=== PATIENT | male | born 1955 | race Caucasian/White ===

== ENCOUNTER 2018-02-16 11:20 | Day surgery (SDC) | payer BC ==
--- NOTE | 2018-02-15 12:04 | RADIOLOGY REPORT (SQ) ---
EXAM DESCRIPTION: CHEST PA/LATERAL COMPLETED DATE/TIME: 02/15/2018 11:35 am REASON FOR STUDY: PRE-OP COMPARISON: None. EXAM PARAMETERS: NUMBER OF VIEWS: two views TECHNIQUE: Digital Frontal and Lateral radiographic views of the chest acquired. RADIATION DOSE: NA LIMITATIONS: none FINDINGS: LUNGS AND PLEURA: No opacities, masses or pneumothorax. No pleural effusion. MEDIASTINUM AND HILAR STRUCTURES: No masses or contour abnormalities. HEART AND VASCULAR STRUCTURES: Heart normal size. No evidence for failure. BONES: No acute findings. HARDWARE: None in the chest. OTHER: No other significant finding. IMPRESSION: NO SIGNIFICANT RADIOGRAPHIC FINDING IN THE CHEST. TECHNICAL DOCUMENTATION: JOB ID: [id number] [employer]- All Rights Reserved Reading location - IP/workstation name: [email or web address]
[2018-02-15 12:07] LABS: HEMATOCRIT 43.4 % (37.9-51.0); HEMOGLOBIN 14.7 g/dL (13.5-17.0); MEAN CORPUSCULAR HEMOGLOBIN 31.3 pg (27.0-33.4); MEAN CORPUSCULAR VOLUME 92 fl (80-97); PLATELET COUNT 209 10^3/uL (150-450); WHITE BLOOD COUNT 7.2 10^3/uL (4.0-10.5)
[2018-02-15 12:11] LABS: APPEARANCE,URINE CLEAR; BILIRUBIN,URINE NEGATIVE (NEGATIVE); COLOR,URINE YELLOW; GLUCOSE, URINE NEGATIVE (NEGATIVE); KETONES,URINE NEGATIVE (NEGATIVE); LEUKOCYTE ESTERASE,URINE NEGATIVE (NEGATIVE); NITRITE,URINE NEGATIVE (NEGATIVE); PROTEIN,URINE NEGATIVE (NEGATIVE); URINE SPECIFIC GRAVITY 1.018; UROBILINOGEN,URINE NEGATIVE mg/dL (<2.0)
[2018-02-15 12:36] LABS: ANION GAP 11 (5-19); BLOOD UREA NITROGEN 22 mg/dL (7-20); CALCIUM 9.7 mg/dL (8.4-10.2); CARBON DIOXIDE 32 mmol/L (22-30); CHLORIDE 102 mmol/L (98-107); GLUCOSE 78 mg/dL (75-110); POTASSIUM 4.4 mmol/L (3.6-5.0); SODIUM 144.9 mmol/L (137-145)
--- NOTE | 2018-02-15 12:44 | EKG REPORT ---
SEVERITY:- NORMAL ECG - SINUS RHYTHM : Confirmed by: Raghavendra Negro MD 15-Feb-2018 12:43:17
[~2018-02-16 11:20] MED LIST: BUPIVACAINE HCL 0.5 % INJ/PF 30 ML SDV ONE; CEFAZOLIN 2 GM/D5W RTU 2 GM/50 ML RTUPB IV PRN; LACTATED RINGERS 1000 ML IV PRN; LIDOCAINE 0.5% INJ-PF (5 MG/ML) 50 ML SDV SUBCUT PRN; LIDOCAINE 1% INJ-PF (10 MG/ML) 30 ML SDV ONE
[2018-02-16] MEDS ORDERED: FENTANYL CITRATE INJ/PF 100 MCG/2 ML AMPUL ONE (12:46)
[2018-02-16] MEDS ORDERED: LIDOCAINE 2% INJ-PF (20 MG/ML) 10 ML AMPUL ONE (12:46)
[2018-02-16] MEDS ORDERED: MIDAZOLAM 2 MG/2 ML INJ ONE (12:47)
[2018-02-16] MEDS ORDERED: PROPOFOL INJ 200 MG/20 ML VIAL IV ONE (12:47)
[2018-02-16] MEDS ORDERED: DEXAMETHASONE SOD PHOSPHATE INJ 4 MG/1 ML VIAL ONE (12:47)
[2018-02-16] MEDS ORDERED: ACETAMINOPHEN 1,000 MG/100 ML RTUPB IV ONE (12:47)
[2018-02-16] MEDS ORDERED: FENTANYL CITRATE INJ/PF 100 MCG/2 ML AMPUL IV PRN ×4 (13:40→15:53)
[2018-02-16] MEDS ORDERED: ONDANSETRON HCL INJ/PF 4 MG/2 ML SDV IV PRN ×2 (13:40→15:53)
[2018-02-16] MEDS ORDERED: MEPERIDINE HCL/PF INJ 25 MG/1 ML DISP.SYRIN IV PRN (13:40)
[2018-02-16] MEDS ORDERED: PROMETHAZINE HCL INJ 25 MG/1 ML VIAL IV PRN ×2 (13:40)
[2018-02-16] MEDS ORDERED: DIPHENHYDRAMINE HCL 50 MG/ML VIAL IV PRN (13:40)
[2018-02-16] MEDS ORDERED: MORPHINE SULFATE 10 MG/ML INJ IV PRN (13:40)
[2018-02-16] MEDS ORDERED: OXYCODONE-ACETAMINOPHEN 5-325 MG TABLET PO PRN (15:53)
--- NOTE | 2018-02-16 15:53 | Operative Report ---
Operative Report DATE OF SURGERY: 02/16/18 PREOPERATIVE DIAGNOSIS: Left intra-articular distal radius fracture POSTOPERATIVE DIAGNOSIS: Same OPERATION: ORIF left intra-articular distal radius fracture via dorsal approach SURGEON: KINZA ROBERTS ANESTHESIA: GA COMPLICATIONS: None ESTIMATED BLOOD LOSS: Minimal PROCEDURE: Indication for above procedure: 62-year-old male who sustained a fall while playing dodge ball with some children during vacation [employer]. Patient was seen at the emergency room where x-rays demonstrate comminuted distal radius fracture. CT scan was done confirming diagnosis. Given given the amount of comminution intra-articular nature of the fracture we discussed treatment options including operative versus nonoperative intervention after discussing risks and benefits joint decision was made to proceed with operative treatment. Procedure In Detail: Patient was seen and evaluated in the preoperative holding area. The LEFT upper extremity was initialized and marked. Patient received 2g of Ancef IV for bacterial prophylaxis. Patient was taken back to the operative room where transferred to the operative table and placed under general anesthesia. Once they were adequately anesthetized a nonsterile tourniquet was placed on the upper extremity. A surgical team debriefing was performed ensuring all instrumentation was available, the surgical procedure was discussed with possible concerns reviewed. The upper extremity was prepped with chlorhexidine and alcohol and draped in a sterile fashion. A timeout was done identifying correct patient, procedure and extremity everyone in attendance agree with this and verbalized no concerns. The extremity was exsanguinated the tourniquet was inflated to 250 mmHg. Longitudinal skin incision was made centered over Sharla's tubercle. Blunt dissection was performed. Any peripheral veins were coagulated bipolar cautery. Branches of the superficial nerves were identified and retracted. The third dorsal compartment was then opened and hematoma irrigated. I then released the EPL tendon and transposed it in a radial direction. With sharp dissection the fourth dorsal compartment and third dorsal compartment were elevated exposing the fracture site. The posterior interosseous nerve identified and neurectomy was performed excising 1 cm. A capsulotomy was made to directly visualize the articular surface. The articular surface was then copiously irrigated with normal saline. Any loose bodies and cartilage fragments were excised. A 8 mm defect along the dorsal aspect was identified however the remaining portion of the articular surface was intact. Under direct visualization the fragments were then fixated with K wires to restore articular alignment. Once adequate articular alignment was achieved C-arm fluoroscopy was obtained confirming acceptable alignment. A standard Acumed dorsal plate was then placed into position. C-arm fluoroscopy was obtained confirming appropriate placement. A bicortical screw was placed through the oblong hole. I then proceeded with fixation. Under direct visualization of the articular surface the radial column was fixated with 2 locking screws which adequately supported the articular surface. I then completed fixation along the ulnar column with 3 additional locking screws once again providing adequate fixation. C-arm fluoroscopy was obtained demonstrating voodoo of radial height, inclination and volar tilt. Under direct visualization of the articular surface was no evidence of intra- articular screw penetration. There is adequate fixation of the articular fragments however did not feel there was adequate fixation within the radial styloid. At the bare portion between the first and second dorsal compartments a K wire was placed perpendicular to the radial styloid fragment. With C arm fluoroscopy confirmed adequate placement of the K wire and placed a 30 mm mini Acutrak screw was provided fixation of the radial styloid fragment. All remaining K wires were then removed. I placed the wrist through range of motion there is no evidence of fracture instability under direct visualization. C-arm fluoroscopy was obtained and under live fluoroscopy there is no evidence of instability with adequate voodoo of the articular alignment. The wound was then copiously irrigated with normal saline. The EPL was transposed in a radial direction. The retinaculum was then reapproximated with 3-0 Monocryl suture which provided a smooth gliding surface for the EPL. There was adequate coverage of the plate protecting the fourth dorsal compartment as well. The tourniquet was then deflated. Any peripheral bleeding was controlled with bipolar cautery into the wound was dry. Subcutaneous tissues were closed with interrupted 4-0 Monocryl suture. Skin was closed with a running horizontal mattress 4-0 nylon. 30 cc of 0.5% Marcaine without epinephrine was injected for postoperative pain control. Patient was placed in a volar resting splint in the neutral position. Sponge counts, instrument counts, needle counts counts were correct. Patient was then awoken from anesthesia. Transferred from the operating room table to the operating room stretcher. There was no intraoperative complications patient tolerated procedure well stable to PACU. Postoperative plan: Patient will follow-up in the office in 2 weeks radiographs will be obtained. Patient will be transitioned to a Exos brace sutures removed. He will begin supination and pronation but avoid wrist flexion/extension until follow-up with me in 4 weeks postop. Will continue digit range of motion attempting to make a full composite fist.
--- NOTE | 2018-02-16 15:54 | Discharge Summary ---
Discharge Summary (SDC) - Discharge Final Diagnosis: Left intra-articular distal radius fracture Date of Surgery: 02/16/18 Discharge Date: 02/16/18 Condition: Good Treatment or Instructions: Schedule Follow Up w/ Dr. Fletcher Dent @ [facility] to be seen in 10-14 days or as scheduled [place]: [place]: [place]: Ice and elevate Keep splint clean/dry/intact. If your fingers become numb please unwrap the Rosalio wrap but leave the splint in place, if the sensation does not return within 30 minutes please return to the emergency department. May begin finger range of motion attempting to make full fist. Please use ibuprofen (Motrin or Advil) 600-800 mg every 8 hours as needed for pain or fever DO NOT TAKE w/ TORADOL may use once TORADOL complete. You may also use acetaminophen (Tylenol) 1000 mg every 4-6 hours as needed for pain or fever. Please be aware that many medications contain acetaminophen, do not exceed a total of 1000 mg of acetaminophen every 6 hours. If ibuprofen and acetaminophen are not sufficient for your pain you may take the Percocet/[place]. Please be aware that the Percocet/[place] does contain Tylenol. Stool softener of choice when on pain medication. Prescriptions: Oxycodone HCl/Acetaminophen [Percocet 5-325 mg Tablet] 1 - 2 tab PO ASDIR PRN # 35 tablet PRN Reason: Discharge Diet: As Tolerated Respiratory Treatments at Home: Deep Breathing/Coughing Discharge Activity: No Lifting Over 10 Pounds, No Lifting/Push/Pulling Report the Following to Your Physician Immediately: Fever over 101 Degrees, Unusual Bleeding, Redness, Swelling, Warmth, Increased Soreness
--- NOTE | 2018-02-16 16:14 | RADIOLOGY REPORT (SQ) ---
EXAM DESCRIPTION: WRIST LEFT 2 VIEWS; NO CHG FLUORO COMPLETED DATE/TIME: 02/16/2018 4:00 pm REASON FOR STUDY: ORIF LEFT WRIST S52.532A COLLES' FRACTURE OF LEFT RADIUS, INIT FOR CLOS FX COMPARISON: None. FLUOROSCOPY TIME: 1 minutes 40 seconds 5 digital radiographic images saved to PACS. TECHNIQUE: Intra-operative images acquired during surgical procedure to evaluate progress. NUMBER OF IMAGES: 5 digital radiographic images LIMITATIONS: None. FINDINGS: Intra procedural imaging and fluoro during ORIF distal left radius fracture. Please see t he operative report for further details IMPRESSION: Intra procedural imaging and fluoro COMMENT: Quality ID 145: Final reports for procedures using fluoroscopy that document radiation exp osure indices, or exposure time and number of fluorographic images (if radiation exposure indices are not available) Please consult full operative report of the attending physician for description of the procedure. TECHNICAL DOCUMENTATION: JOB ID: [id number] [employer]- All Rights Reserved Reading location - IP/workstation name: [email or web address]
--- NOTE | 2018-02-16 16:14 | RADIOLOGY REPORT (SQ) ---
EXAM DESCRIPTION: WRIST LEFT 2 VIEWS; NO CHG FLUORO COMPLETED DATE/TIME: 02/16/2018 4:00 pm REASON FOR STUDY: ORIF LEFT WRIST S52.532A COLLES' FRACTURE OF LEFT RADIUS, INIT FOR CLOS FX COMPARISON: None. FLUOROSCOPY TIME: 1 minutes 40 seconds 5 digital radiographic images saved to PACS. TECHNIQUE: Intra-operative images acquired during surgical procedure to evaluate progress. NUMBER OF IMAGES: 5 digital radiographic images LIMITATIONS: None. FINDINGS: Intra procedural imaging and fluoro during ORIF distal left radius fracture. Please see t he operative report for further details IMPRESSION: Intra procedural imaging and fluoro COMMENT: Quality ID [id number]: Final reports for procedures using fluoroscopy that document radiation exp osure indices, or exposure time and number of fluorographic images (if radiation exposure indices are not available) Please consult full operative report of the attending physician for description of the procedure. TECHNICAL DOCUMENTATION: JOB ID: [id number] [employer]- All Rights Reserved Reading location - IP/workstation name: [email or web address]
[2018-02-16] MEDS ORDERED: LIDOCAINE 2%/EPINEPHRINE INJ 20 ML VIAL ONE (16:20)
[2018-02-16] MEDS ORDERED: ROPIVACAINE HCL 0.5% INJ/PF (5 MG/1 ML) 30 ML SDV ONE (16:20)
[2018-02-16] MEDS ORDERED: LIDOCAINE 2% INJ (20 MG/ML) 20 ML MDV ONE (16:20)
[2018-02-16 17:50] VITALS: BP 127/79
== END 2018-02-16 17:45 | disposition home or self-care (01) ==
LOC: OROUT 11:20
PROVIDERS: ATTEND Orthopaedic Surgery
DX: S52.532A Colles' fracture of left radius, initial encounter for closed fracture (principal); Z79.82 Long term (current) use of aspirin; Z79.899 Other long term (current) drug therapy; K21.9 Gastro-esophageal reflux disease without esophagitis; N40.0 Benign prostatic hyperplasia without lower urinary tract symptoms; S52.572A Other intraarticular fracture of lower end of left radius, initial encounter for closed fracture; W19.XXXA Unspecified fall, initial encounter; Y93.6A Activity, physical games generally associated with school recess, summer camp and children; Y92.22 Religious institution as the place of occurrence of the external cause
CPT/HCPCS: 93010 ×2; 25608; 93005; 36415; 85027; 80048; 81001; 71046; 73100; C1713 ×2; C1769; J2795; J2250; J3490 ×5; J1100; J3010; J2704; J0690; J0131; 01830